=== PATIENT | male | born 1960 | race Caucasian/White ===

== ENCOUNTER 2016-02-11 11:49 | Observation (INO) | payer MEDICAID, SELFPAY ==
[2016-02-11] VITALS (17 sets, daily range): BP systolic 102–158; BP diastolic 77–109; PULSE 89–153; RESP 14–36; TEMP 36.7–37.3; O2SAT 92–99; BMI 34.9; BMI 32.6
--- NOTE | 2016-02-11 12:49 | CT_ITS ---
STUDY: CT BRAIN WITHOUT CONTRAST REASON FOR EXAM: Male, 55 years old. Trauma RADIATION DOSAGE (If Supplied By Facility): CTDIvol = ( 44.99 ) mGy, DLP = ( 829.85 ) mGycm TECHNIQUE: Transaxial CT imaging of the brain was performed without administration of intravenous contrast material. Individualized dose optimization techniques were used for this CT. COMPARISON: None. FINDINGS: Normal soft tissue structures. Normal calvarium. The lateral ventricles are normal in size and are symmetric. The third and fourth ventricles are midline. There is norwood matter atrophy involving the frontal lobes. Normal white matter tracts of the cerebral hemispheres. Normal basal ganglia and thalami. Normal brainstem. Normal cerebellum. There is no intracranial hemorrhage. There are no findings of an acute ischemic infarction. There are polypoid filling defects of the inferior maxillary sinuses consistent with mucoid retention cysts. There is opacification of multiple ethmoidal air cells bilaterally. There is mucosal thickening of the sphenoid sinuses. CT/Brain/Head without Contrast IMPRESSION: [place]wood matter atrophy involving the frontal lobes. There is no evidence of intracerebral or intracranial hemorrhage or calvarial fracture. Chronic pansinusitis. Polypoid filling defects of the inferior maxillary sinuses consistent with mucoid retention cysts. Electronically Signed: Johnie Gilman MD at 15:37 EST , Service support [phone],
--- NOTE | 2016-02-11 12:51 | CT_ITS ---
STUDY: CT CERVICAL SPINE WITHOUT CONTRAST REASON FOR EXAM: Male, 55 years old. Trauma RADIATION DOSAGE (If Supplied By Facility): CTDIvol = ( 16.97 ) mGy, DLP = ( 344.65 ) mGycm TECHNIQUE: High resolution transaxial imaging was performed without contrast material. Sagittal and coronal images were reconstructed. Individualized dose optimization techniques were used for this CT. COMPARISON: None FINDINGS: Evaluation of the lower cervical vertebrae/upper thoracic region is limited secondary to scanning artifact caused by patient body habitus. Normal craniovertebral junction. Normal anterior atlantoaxial articulation. Normal odontoid process. There is straightening of the normal cervical lordosis. There is mild marginal osteophytic lipping of the C5, 6, and 7 vertebral bodies. C2-3: Normal endplates. Normal disc height and morphology. Normal central canal and intervertebral neuroforamina. C3-4: Normal endplates. Normal disc height and morphology. Normal central canal and intervertebral neuroforamina. C4-5: Normal endplates. Normal disc height and morphology. Normal central canal and intervertebral neuroforamina. C5-6: Normal endplates. Normal disc height and morphology. Normal central canal and intervertebral neuroforamina. C6-7: There is mild narrowing of the C6-7 disc space. There is no evidence of spinal canal or foraminal stenosis. The facets appear within normal limits. C7-T1: Visualization of the C7-T1 level is technically limited. There is no evidence of disc space narrowing or spinal canal or foraminal stenosis. The facets are unremarkable. Normal visualized soft tissue structures. CT/Spine Cervical without Contras IMPRESSION: Technically limited study. Cervical spinal straightening and degenerative changes of C5-C7 as described above. Mild narrowing of the C6-7 disc space. There is no evidence of cervical fracture or subluxation. Electronically Signed: Johnie Gilman MD at 15:44 EST , Service support [phone],
--- NOTE | 2016-02-11 12:51 | CT_ITS ---
STUDY: CT ABDOMEN AND PELVIS WITH CONTRAST REASON FOR EXAM: Male, 55 years old. Trauma RADIATION DOSAGE (If Supplied By Facility): CTDIvol = ( ) mGy, DLP = ( 2232.80 ) mGycm TECHNIQUE: Transaxial images were obtained from the dome of the diaphragm to the symphysis pubis without oral contrast. 100ML ml of Isovue 300 contrast was administered. Sagittal and coronal images were reconstructed. Individualized dose optimization techniques were used for this CT. COMPARISON: Previous study of 01/01/2016 FINDINGS: The visualized lung bases are unremarkable. The visualized portions of the heart are within normal limits. Normal liver. Normal gallbladder and extrahepatic biliary system. Normal spleen. Normal pancreas. Normal bilateral adrenal glands. There is a 2 mm nonobstructing calculus of the right kidney. There are several nonobstructing calculi of the left kidney measuring up to 3 mm in diameter. Normal visualized stomach. Normal small intestine. Normal colon. The appendix is visualized and appears normal. There are calcified plaques of the abdominal aorta. Normal inferior vena cava. Normal retroperitoneum. Normal urinary bladder. Prostatic calcifications are present. The seminal vesicles and seminal vesicle angles are preserved. The fascial planes of the ischiorectal fossa are intact. Status post left inguinal hernia repair changes are noted. There is a fat-containing right inguinal hernia. There are diffuse degenerative changes of the thoracolumbar spine. There is a small sclerotic focus of the L5 body consistent with benign process such as bone island. CT/Abdomen/Pelvis W IV Cont ONLY IMPRESSION: 1. Bilateral nonobstructing renal calculi. 2. Calcified plaques of the abdominal aorta. 3. Prostatic calcifications are present. 4. Status post left inguinal hernia repair changes. 5. Fat-containing right inguinal hernia. 6. Diffuse degenerative changes of the thoracolumbar spine. 7. There is no evidence of hepatic, splenic, or renal laceration or hematoma. No abnormal free or loculated intra-abdominal or intrapelvic fluid, free air, or inflammatory process is seen. Electronically Signed: Johnie Gilman MD at 15:59 EST , Service support [phone],
--- NOTE | 2016-02-11 12:51 | CT_ITS ---
STUDY: CT CHEST WITH CONTRAST REASON FOR EXAM: Male, 55 years old. Trauma RADIATION DOSAGE (If Supplied By Facility): CTDIvol = ( 22.19 ) mGy, DLP = ( 2232.80 ) mGycm TECHNIQUE: Transaxial imaging was performed following intravenous administration of 100ML ml of Isovue 300 contrast material. Individualized dose optimization techniques were used for this CT. COMPARISON: None. FINDINGS: The lungs are normal. There is no pneumothorax. There is no demonstrated pleural abnormality. Coronary arterial calcifications are present. There is no evidence of pericardial effusion. There is mild mediastinal lipomatosis. There is no evidence of mediastinal mass or adenopathy. Normal hilar regions. Normal enhanced pulmonary arteries. There are calcified plaques of the thoracic aorta. There are mild diffuse degenerative changes of the thoracolumbar spine. No rib fracture was identified. Abdominal findings will be reported on the accompanying CT of the abdomen and pelvis. CT/Chest WITH Contrast IMPRESSION: 1. Coronary arterial calcifications are present. There is mild mediastinal lipomatosis. 2. There are calcified plaques of the thoracic aorta. 3. The pulmonary parenchyma is clear. There is no evidence of hemo or pneumothorax or pulmonary contusion. 4. No rib fracture was identified. There are diffuse degenerative changes of the thoracolumbar spine. Electronically Signed: Johnie Gilman MD at 15:53 EST , Service support [phone],
[2016-02-11 13:01] LABS: Absolute Lymphocyte Count 2.34 X10^3/ul (0.83-4.51); Absolute Neutrophil Count 7.6 X10^3/uL (2.0-7.7); Basophil# 0.03 X10^3/uL; Basophil% 0.3 % (0-1); Eosinophil# 0.18 X10^3/uL; Eosinophils% 1.6 % (0-5); Hematocrit 41.6 % (40-54); Hemoglobin 14.2 g/dl (13.0-16.5); Lymphocyte # 2.34 X10^3/ul (4.0); Mean Corp Hgb Conc 34.1 g/gl (32-36); Mean Corpuscular Hgb 30.9 pg (27.0-32.0); Mean Corpuscular Volume 90.4 fL (80-94); Mean Platelet Vol. 10.1 fl (6.2-12.0); Monocyte# 0.94 X10^3/uL; Monocyte% 8.4 % (0-10); Neutrophil # 7.63 X10^3/uL (2.7-7.7); Neutrophil % 68.5 % (47-70); Platelet Count 270 K/mm3 (150-450); RBC Distribution Width SD 45.5 fl (35.1-43.9); White Blood Count 11.1 K/mm3 (4.4-11.0)
[2016-02-11 13:02] LABS: POSITIVE COUNT NO; POSITIVE DIFFERENTIAL NO; POSITIVE MORPHOLOGY NO
[2016-02-11 13:14] LABS: Acetaminophen (Tylenol) Level < 2.0 ug/mL (10.0-30.0)
[2016-02-11 13:15] LABS: ALB/GLOB Ratio 0.9 RATIO (0.9-2.4); AST(SGOT) 15 U/L (15-37); Alanine Aminotransfer ALT/SGPT 21 U/L (12-78); Albumin, Serum 3.5 g/dL (3.4-5.0); Alkaline Phosphatase 101 U/L (45-117); Anion Gap 5 (5-15); BUN 18 mg/dL (7-18); BUN/Creat Ratio 15.8 RATIO (10-20); Calcium,Total 8.9 mg/dL (8.5-10.1); Chloride 113 mmol/L (98-107); Creatinine, Serum 1.14 mg/dL (0.70-1.30); EST Glomerular Filtration Rate 71 mL/min (>60); Est Glom Filt Rate - Afr Amer 85 mL/min (>60); Estimated Creatinine Clearance 62.94 ml/min; Globulin 3.7 g/dL (2.3-3.5); Glucose 95 mg/dL (70-110); Potassium 4.1 mmol/L (3.5-5.1); Protein, Total 7.2 g/dL (6.4-8.2); Sodium Level 144 mmol/L (136-145)
[2016-02-11 13:17] LABS: Alcohol, Blood (Medical)-Serum < 3.0 mg/dL
--- NOTE | 2016-02-11 13:22 | CCN.REFER ---
pt pulled out his iv. pt states he was rolling in bed and it pulled out.
[2016-02-11 15:56] LABS: Bacteria 0 SEEN /hpf (None Seen); Red Blood Cells-Urine 0 SEEN /hpf (0-5); Squamous Epithelial Cells - UA 0 SEEN /hpf (0-5)
[2016-02-11 15:57] LABS: Color, Urine Yellow (Yellow); Glucose, Dipstick Normal (Normal); Ketone-Dipstick Negative (Negative); Leukocyte Esterase-Dipstick Negative /ul (Negative); Nitrite-Dipstick Negative (Negative); Occult Blood-Urine Negative /ul (Negative); Protein-Dipstick Negative (Negative); Specific Gravity, Urine 1.015 (1.002-1.030); Urine Bilirubin Dipstick Negative (Negative); Urine Clarity Clear (Clear); Urine Urobilinogen Normal (Normal)
[2016-02-11 16:19] LABS: Hyaline Cast 0-5 SEEN /lpf (0-5); Mucous, Urine 1+ /hpf (<or=2+)
[2016-02-11 16:21] LABS: White Blood Cells 0-5 SEEN /hpf (0-5)
[2016-02-11 16:49] LABS: Amphetamine Urine VISTA NEGATIVE (<1000 ng/mL); Barbiturate Urine VISTA NEGATIVE (< 200 ng/mL); Benzodiazepine Urine VISTA POSITIVE (< 200 ng/mL); Cocaine Urine VISTA NEGATIVE (< 300 ng/mL); Ecstacy Urine VISTA NEGATIVE (< 500 ng/mL); Methadone Urine VISTA NEGATIVE (< 300 ng/mL); PCP Urine VISTA NEGATIVE (< 25 ng/mL); THC Urine VISTA POSITIVE (< 50 ng/mL); Vista UDS pH Range 5
--- NOTE | 2016-02-11 17:40 | RAD_ITS ---
STUDY: X-RAY CHEST REASON FOR EXAM: Male, 55 years old. Shortness of breath. Gurgling sound while breathing. Patient had fall down steps today TECHNIQUE: Single AP portable view of the chest. COMPARISON: None. FINDINGS: EKG leads are in place The lungs are clear and expanded. There is no demonstrated pleural abnormality. Normal size heart. Normal mediastinum and costa. Normal visualized pulmonary arteries. Normal visualized aortic arch and descending thoracic aorta. Normal visualized thoracic spine. Normal visualized ribs, clavicles, and shoulders. There is no demonstrated abnormality of the visualized soft tissue structures of the upper abdomen. RAD/Chest 1 View (Portable) IMPRESSION: Normal x-ray examination of the chest. Electronically Signed: Dain Ortega MD, FACR at 19:08 EST , Service support [phone],
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
[2016-02-11] MEDS: Ipratropium/Albuterol Sulfate 3 ML AMPUL.NEB INHALATION ×2 (18:01→23:01)
[2016-02-11 18:03] LABS: Base Excess 0 mmol/L (-2 to +2); Bicarbonate 25 mmol/L (22-26); Blood Gas Specimen Type ART; PO2 59 mmHG (75-100); SO2 89 % (95-99); Total Carbon Dioxide 27 mmol/L; pH 7.38 (7.35-7.45)
[2016-02-11 18:15] LABS: BNP,B-Type NATRIURETIC PEPTIDE < 2.0 pg/mL (0-100)
[2016-02-11] MEDS: Furosemide 20 MG/2 ML VIAL IV (18:15)
--- NOTE | 2016-02-11 18:22 | EKG12_ITS ---
Test Reason : SOB Blood Pressure : / mmHG Vent. Rate : 110 BPM Atrial Rate : 110 BPM P-R Int : 138 ms QRS Dur : 088 ms QT Int : 290 ms P-R-T Axes : 030 024 245 degrees QTc Int : 392 ms Sinus tachycardia Nonspecific T wave abnormality Abnormal ECG Confirmed by ROSEMARIE LOMAX MD ([id number]), legal editor CRISTOFER SAUER ([id number]) on 02/13/2016 10:25:55 AM Referred By: ZEYAD Confirmed By:ROSEMARIE LOMAX MD
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
--- NOTE | 2016-02-11 20:48 | CPS ---
pt moved from ed to icu 3-placed back on bipap-decresed o2 to 50%
[2016-02-11] MEDS: Furosemide 40 MG/4 ML Vial IV (21:34)
[2016-02-11 22:06] LABS: M R Staph aureus DNA By PCR Negative (Negative); Probe Check PASS; Specimen Processing Control PASS
--- NOTE | 2016-02-11 23:04 | CPS ---
BIPAP SETTING INCREASED TO 17/8 AND 60% DR SOUSA AWARE-
[2016-02-11] MEDS: Haloperidol Lactate 5 MG/ML Vial 1 MG IV (23:32)
--- NOTE | 2016-02-11 23:32 | EKG12_ITS ---
Test Reason : RHY CHANGE Blood Pressure : / mmHG Vent. Rate : 139 BPM Atrial Rate : 139 BPM P-R Int : 152 ms QRS Dur : 072 ms QT Int : 244 ms P-R-T Axes : 030 031 256 degrees QTc Int : [address] \T\ T wave abnormality, consider inferolateral ischemia Abnormal ECG No previous ECGs available Confirmed by PIPPA ALEJANDRA ([id number]), editorial clerk CRISTOFER SAEUR ([id number]) on 02/13/2016 1:10:10 PM Referred By: JANET Confirmed By:PIPPA ALEJANDRA
[2016-02-12] VITALS (16 sets, daily range): BP systolic 132–163; BP diastolic 69–107; PULSE 114–147; RESP 16–29; TEMP 37.2–39.3; O2SAT 90–99
[2016-02-12] MEDS: Acetaminophen 325 MG Tablet 650 MG PO (01:20)
[2016-02-12 02:01] LABS: Absolute Lymphocyte Count 0.91 X10^3/ul (0.83-4.51); Absolute Neutrophil Count 16.5 X10^3/uL (2.0-7.7); Basophil# 0.03 X10^3/uL; Basophil% 0.2 % (0-1); Eosinophil# 0.04 X10^3/uL; Eosinophils% 0.2 % (0-5); Hematocrit 46.4 % (40-54); Hemoglobin 15.9 g/dl (13.0-16.5); Lymphocyte # 0.91 X10^3/ul (4.0); Lymphocyte % 4.9 % (19-41); Mean Corp Hgb Conc 34.3 g/gl (32-36); Mean Corpuscular Hgb 30.9 pg (27.0-32.0); Mean Corpuscular Volume 90.3 fL (80-94); Mean Platelet Vol. 10.2 fl (6.2-12.0); Monocyte# 1.11 X10^3/uL; Neutrophil # 16.49 X10^3/uL (2.7-7.7); Neutrophil % 88.5 % (47-70); POSITIVE COUNT NO; POSITIVE DIFFERENTIAL NO; POSITIVE MORPHOLOGY NO; Platelet Count 265 K/mm3 (150-450); RBC Distribution Width CV 14.2 % (11.6-14.6); RBC Distribution Width SD 46.5 fl (35.1-43.9); Red Blood Count 5.14 M/mm3 (4.6-6.2); White Blood Count 18.6 K/mm3 (4.4-11.0)
[2016-02-12 02:13] LABS: Anion Gap 10 (5-15); BUN 18 mg/dL (7-18); BUN/Creat Ratio 12.3 RATIO (10-20); Calcium,Total 9.3 mg/dL (8.5-10.1); Chloride 109 mmol/L (98-107); Creatinine, Serum 1.46 mg/dL (0.70-1.30); EST Glomerular Filtration Rate 53 mL/min (>60); Est Glom Filt Rate - Afr Amer 64 mL/min (>60); Estimated Creatinine Clearance 50.98 ml/min; Glucose 128 mg/dL (70-110); Potassium 3.6 mmol/L (3.5-5.1); Sodium Level 142 mmol/L (136-145)
[2016-02-12 02:20] LABS: Lactic Acid 2.5 mmol/L (0.4-2.0)
[2016-02-12 02:36] LABS: Base Excess 3 mmol/L (-2 to +2); Bicarbonate 27 mmol/L (22-26); Blood Gas Specimen Type ART; PO2 105 mmHG (75-100); SO2 98 % (95-99); Total Carbon Dioxide 28 mmol/L; pH 7.47 (7.35-7.45)
[2016-02-12] MEDS: CHLORHEXIDINE GLUC 2% CLOTH 1 EACH TOWELETTE TOPICAL (04:05)
--- NOTE | 2016-02-12 05:55 | ECHOD_ITS ---
Reason For Study: CHF Procedure This was a 2D Doppler, Color Flow transthoracic echocardiogram. Exam performed portable in ICU/CCU. Left Ventricle Normal size and thickness. The estimated ejection fraction is 65 %. No regional wall motion abnormalities noted. Right Ventricle Normal size and thickness. Normal systolic function. Atria Normal left atrium. Normal right atrium. Normal atrial septum. Mitral Valve The mitral valve is structurally normal. No prolapse or stenosis seen. Tricuspid Valve Normal tricuspid valve. Unable to estimate RV systolic pressure/pulmonary artery pressure due to technically difficult study. Pulmonic Valve The pulmonic valve is not well visualized. Great Vessels Normal aortic root. Normal arch. Normal inferior vena cava. Inferior vena cava collapse with sniff. Pericardium/Pleural No pericardial effusion. MMode/2D Measurements \T\ Calculations LVIDd: 4.3 cm IVSd: 1.2 cm Ao root diam: 3.3 cm LVIDs: 2.9 cm LVPWd: 1.1 cm LA dimension: 4.1 cm RVDd: 3.5 cm FS: 31.4 % LAV(MOD-bp): 19.9 ml LAV(MOD-bp) Indexed: 10.1 ml/m2 LA A4 area: 10.1 cm2 RA A4 area: 7.8 cm2 LAV(MOD-sp2): 19.8 ml LAV(MOD-sp4): 18.5 ml Doppler Measurements \T\ Calculations MV E max zander: 51.1 cm/sec Lat Peak E' Zander: 4.8 cm/sec Med Peak E' Zander: 3.9 cm/sec MV A max zander: 62.5 cm/sec E/E' lat: 10.6 E/E' med: 13.2 MV E/A: 0.82 Ao V2 max: 132.1 cm/sec LV V1 max: 89.9 cm/sec PA V2 max: 113.4 cm/sec Ao max P.0 mmHg LV V1 max P.2 mmHg Ao V2 mean: 90.5 cm/sec Ao mean P.6 mmHg Ao V2 VTI: 17.9 cm Interpretation Summary The estimated ejection fraction is 65 %. Unable to estimate RV systolic pressure/pulmonary artery pressure due to technically difficult study. The study was technically difficult. There is no comparison study available. Ordering Physician: Nadiya Urban Referring Physician: Nadiya Urban Performed By: Gudelia Lyons RDCS, RVT
[2016-02-12 06:03] LABS: Anion Gap 13 (5-15); BUN 21 mg/dL (7-18); BUN/Creat Ratio 13.3 RATIO (10-20); Calcium,Total 9.2 mg/dL (8.5-10.1); Chloride 105 mmol/L (98-107); Creatinine, Serum 1.58 mg/dL (0.70-1.30); EST Glomerular Filtration Rate 48 mL/min (>60); Est Glom Filt Rate - Afr Amer 59 mL/min (>60); Estimated Creatinine Clearance 47.11 ml/min; Glucose 143 mg/dL (70-110); Potassium 3.7 mmol/L (3.5-5.1); Sodium Level 142 mmol/L (136-145)
--- NOTE | 2016-02-12 07:07 | PCM.CON.CC ---
Problem List (1) Acute respiratory failure with hypoxia Status: Acute (2) Chronic back pain Status: Chronic Qualifiers: Back pain location: back pain in unspecified location Back pain laterality: B Sciatica presence: S Sciatica laterality: S (3) Polysubstance dependence including opioid drug with daily use Status: Chronic Reason for Consult Date of Consultation: 02/12/16 Reason for Consultation: Acute Respiratory Failure History of Present Illness: The patient is a 55-year-old male, with a history as outlined below, who presented to the emergency department on February 10 under the supervision of police after the patient apparently tripped and fell down a flight of stairs in his home environment. Per report, the patient resides with his mother, who was suspicious that the patient is suffering effects of polypharmacy as he has been exhibiting bizarre behavior. The patient was recently discharged from a inpatient psychiatric stay on 04 February, following evaluation for suicidal ideations. The patient also has a reported history of polysubstance abuse. On presentation to the emergency department, the patient was noted to be lethargic with a GCS of 14. He had no focal neurological deficits. He was hemodynamically stable and maintaining appropriate oxygen saturations on room air. The patient underwent CAT scans of his brain, chest, abdomen and pelvis. The results of those imaging studies demonstrated no significant pathology. A toxicology screen was positive for marijuana and benzodiazepines. His alcohol level was negative. During his emergency department stay, the patient was noted to become progressively hypoxic, requiring increasing supplemental oxygen. He was subsequently placed on BiPAP therapy and transferred to the medical intensive care unit for ongoing management. Overnight, the patient was provided aerosol treatments and was started on Levaquin. He did spike a fever and his white blood cell count edyta to 19,000 this morning. The patient tolerated BiPAP overnight, without any significant issues. His gas exchange is improved this morning. In addition, the patient was started on diuretic therapy overnight, but had worsening of his creatinine this morning to 1.58. The patient was able to be weaned from BiPAP therapy to supplemental oxygen without issue. Past Medical History Past Medical History (Chronic Problems): Chronic Problems Chronic back pain (Chronic) Polysubstance dependence including opioid drug with daily use (Chronic) Allergies morphine Allergy (Verified 02/11/16 11:52) Rash prednisone Allergy (Verified 02/11/16 11:52) Anaphylaxis quetiapine fumarate [From Ugurul] Allergy (Verified 02/11/16 11:52) Rash sulfamethoxazole [From Bactrim] Allergy (Verified 02/11/16 11:52) Rash trimethoprim [From Bactrim] Allergy (Verified 02/11/16 11:52) Rash Home Medications: Ambulatory Orders Medication Instructions Recorded Acetaminophen [Tylenol] 650 mg PO Q4H PRN 08/21/15 Aspirin [Aspirin, Baby] 81 mg PO DAILY@0800 08/21/15 Budesonide/Formoterol 160/4.5 2 puff INHALATION BID 08/21/15 [Symbicort 160/4.5 Mcg Inhaler (SP)] Finasteride [Proscar] 5 mg PO DAILY 08/21/15 Pantoprazole Sodium [Protonix] 40 mg PO BID 08/21/15 Pravastatin [Pravachol] 20 mg PO QHS 08/21/15 Tamsulosin HCl [Flomax] 0.4 mg PO BID 08/21/15 ProMETHAzine [Phenergan] 25 mg PO Q6H PRN PRN #10 tablet 01/01/16 ProMETHAzine [Phenergan] 25 mg RECTAL Q4H PRN PRN #10 01/12/16 suppos. Sucralfate [Carafate] 1 gm PO 4X/DAY #30 tab 01/20/16 Carvedilol [Coreg] 6.25 mg PO BID 02/11/16 Cyclobenzaprine [Flexeril] 10 mg PO TID PRN PRN 02/11/16 Docusate Sodium [Colace] 100 mg PO DAILY 02/11/16 Doxepin HCl 50 - 100 mg PO QHS PRN 02/11/16 Gabapentin [Neurontin] 300 mg PO 1700 02/11/16 Gabapentin [Neurontin] 300 mg PO DAILY 02/11/16 Gabapentin [Neurontin] 600 mg PO QHS 02/11/16 Lurasidone HCl [Latuda] 60 mg PO 0 02/11/16 Mirtazapine [Remeron] 30 mg PO QHS 02/11/16 Multivitamin with Iron [Tab-A-Radha 1 each PO DAILY 02/11/16 with Iron] Surgical History: - - Intracranial repair, bilateral inguinal hernia repair Psychiatric History: Depression, Prior suicide attempt Smoking Status: Current every day smoker Tobacco Use: Non-smoker Alcohol: None Drugs: None - *Family History Maternal History Items: Unknown Paternal History Items: Unknown Review of Systems Constitutional: Denies: Chills, Fever, Night Sweats Eyes: Denies: Blurred vision, Double vision HEENT: Denies: Head Aches, Sinus Congestion, Sinus Drainage Cardiovascular: Denies: Chest Pain, Palpitations Respiratory: Reports: Cough Gastrointestinal: Denies: Abdominal Pain, Nausea, Vomiting Genitourinary: Denies: Dysuria Musculoskeletal: Reports: Back Pain Skin: Denies: Rash, Wounds Neurological: Reports: Headaches Psychiatric: Reports: Anxiety, Depression Hematologic/ Lymphatic: Denies: Easy Bruising, Easy Bleeding Objective: The patient's most recent lab work, culture data and imaging studies have all been personally reviewed. Urine and blood cultures are pending. His influenza screen was negative. - Physical Exam General: Alert, No apparent distress HEENT: Atraumatic, PERRLA, EOMI, Normocephalic Oral: No Gingival or Mucosal Lesions/ Ulcerations, Dry Mucosa Neck: Supple, No JVD, Trachea Midline Lungs: - - Scattered rhonchi Cardiovascular: Regular Rhythm, No murmurs, Tachycardic Abdomen: Bowel Sounds Present, Soft, Non Tender, Non-Distended, Obese Extremities: No clubbing, No cyanosis, No edema Skin: No rashes, No breakdown Musculoskeletal: No Tenderness to Palpation of Joints or Extremities Lymphatic: No Cervical, Supraclavicular, or Inguinal Adenopathy Neurological: - - No focal neurological deficits. Psych/Mental Status: Anxious, Restless Vital Signs Temp Pulse Resp BP Pulse Ox 37.5 C 114 25 147/90 90 02/12/16 06:00 02/12/16 06:00 02/12/16 06:00 02/12/16 06:00 02/12/16 06:00 Oxygen Delivery Method Bi-pap Weight: 90.7 kg Body Mass Index (BMI) 32.6 Intake and Output for Last 24 Hours 02/10/16 02/11/16 02/12/16 23:59 23:59 23:59 Intake Total 112 Output Total 1700 200 Balance -1700 -88 Microbiology Past 72 Hours 02/11/16 21:00 Influenza Types A,B Direct FA (TANYA) - Final Mucosa - Nose Laboratory Tests Past 24 Hrs 02/11/16 02/11/1602/11/17 20:35 21:40 01:30 WBC RBC Hgb Hct MCV MCH MCHC RDW RDW Differential Plt Count MPV Immature Gran % (Auto) Neut % (Auto) Lymph % (Auto) [place] % (Auto) Eos % (Auto) Baso % (Auto) Absolute Neuts (auto) Absolute Lymphs (auto) Total Counted Specimen Type pH Bicarbonate Actual POC Total CO2 Base Excess O2 Saturation ABG pCO2 ABG pO2 Sodium Potassium Chloride Carbon Dioxide Anion Gap BUN Creatinine Estim Creat Clear Calc Est GFR (MDRD) Af Amer Est GFR (MDRD) Non-Af BUN/Creatinine Ratio Glucose Lactic Acid Calcium Troponin I < 0.02 < 0.02 MRSA (PCR) Negative 02/12/16 02/12/16 02/12/16 01:30 01:30 01:45 WBC 18.6 H RBC 5.14 Hgb 15.9 Hct 46.4 MCV 90.3 MCH 30.9 MCHC 34.3 RDW 14.2 RDW Differential 46.5 H Plt Count 265 MPV 10.2 Immature Gran % (Auto) 0.200 Neut % (Auto) 88.5 H Lymph % (Auto) 4.9 L [place] % (Auto) 6.0 Eos % (Auto) 0.2 Baso % (Auto) 0.2 Absolute Neuts (auto) 16.5 H Absolute Lymphs (auto) 0.91 Total Counted Not Reportable Specimen Type pH Bicarbonate Actual POC Total CO2 Base Excess O2 Saturation ABG pCO2 ABG pO2 Sodium 142 Potassium 3.6 Chloride 109 H Carbon Dioxide 23.0 Anion Gap 10 BUN 18 Creatinine 1.46 H Estim Creat Clear Calc 50.98 Est GFR (MDRD) Af Amer 64 Est GFR (MDRD) Non-Af 53 L BUN/Creatinine Ratio 12.3 Glucose 128 H Lactic Acid 2.5 H Calcium 9.3 Troponin I MRSA (PCR) 02/12/16 02/12/16 02/12/16 02:25 05:10 05:10 WBC Pending RBC Pending Hgb Pending Hct Pending MCV Pending MCH Pending MCHC Pending RDW Pending RDW Differential Pending Plt Count Pending MPV Immature Gran % (Auto) Neut % (Auto) Lymph % (Auto) [place] % (Auto) Eos % (Auto) Baso % (Auto) Absolute Neuts (auto) Absolute Lymphs (auto) Total Counted Specimen Type ART pH 7.47 H Bicarbonate Actual 27 H POC Total CO2 28 Base Excess 3 H O2 Saturation 98 ABG pCO2 37.0 ABG pO2 105 H Sodium 142 Potassium 3.7 Chloride 105 Carbon Dioxide 24.0 Anion Gap 13 BUN 21 H Creatinine 1.58 H Estim Creat Clear Calc 47.11 Est GFR (MDRD) Af Amer 59 L Est GFR (MDRD) Non-Af 48 L BUN/Creatinine Ratio 13.3 Glucose 143 H Lactic Acid Calcium 9.2 Troponin I MRSA (PCR) 02/12/16 05:10 WBC RBC Hgb Hct MCV MCH MCHC RDW RDW Differential Plt Count MPV Immature Gran % (Auto) Neut % (Auto) Lymph % (Auto) [place] % (Auto) Eos % (Auto) Baso % (Auto) Absolute Neuts (auto) Absolute Lymphs (auto) Total Counted Specimen Type pH Bicarbonate Actual POC Total CO2 Base Excess O2 Saturation ABG pCO2 ABG pO2 Sodium Potassium Chloride Carbon Dioxide Anion Gap BUN Creatinine Estim Creat Clear Calc Est GFR (MDRD) Af Amer Est GFR (MDRD) Non-Af BUN/Creatinine Ratio Glucose Lactic Acid Calcium Troponin I < 0.02 MRSA (PCR) Clinical Impression(s) from Imaging Studies Brain CT 02/11/16 12:49 IMPRESSION: [place] matter atrophy involving the frontal lobes. There is no evidence of intracerebral or intracranial hemorrhage or calvarial fracture. Chronic pansinusitis. Polypoid filling defects of the inferior maxillary sinuses consistent with mucoid retention cysts. Electronically Signed: Johnie Gilman MD at 15:37 EST , Service support [phone], Abdomen/Pelvis CT 02/11/16 12:51 IMPRESSION: 1. Bilateral nonobstructing renal calculi. 2. Calcified plaques of the abdominal aorta. 3. Prostatic calcifications are present. 4. Status post left inguinal hernia repair changes. 5. Fat-containing right inguinal hernia. 6. Diffuse degenerative changes of the thoracolumbar spine. 7. There is no evidence of hepatic, splenic, or renal laceration or hematoma. No abnormal free or loculated intra-abdominal or intrapelvic fluid, free air, or inflammatory process is seen. Electronically Signed: Johnie Gilman MD at 15:59 EST , Service support [phone], Cervical Spine CT 02/11/16 12:51 IMPRESSION: Technically limited study. Cervical spinal straightening and degenerative changes of C5-C7 as described above. Mild narrowing of the C6-7 disc space. There is no evidence of cervical fracture or subluxation. Electronically Signed: Johnie Gilman MD at 15:44 EST , Service support [phone], Chest CT 02/11/16 12:51 IMPRESSION: 1. Coronary arterial calcifications are present. There is mild mediastinal lipomatosis. 2. There are calcified plaques of the thoracic aorta. 3. The pulmonary parenchyma is clear. There is no evidence of hemo or pneumothorax or pulmonary contusion. 4. No rib fracture was identified. There are diffuse degenerative changes of the thoracolumbar spine. Electronically Signed: Johnie Gilman MD at 15:53 EST , Service support [phone], Chest X-Ray 02/11/16 17:40 IMPRESSION: Normal x-ray examination of the chest. Electronically Signed: Dain Ortega MD, FACR at 19:08 EST , Service support [phone], Assessment/Plan RECOMMENDATIONS: 1. Wean the patient from BiPAP therapy to nasal cannula, with a goal to maintain saturations at or above 88%. 2. Perform bedside swallow evaluation and advance diet accordingly 3. Recheck serum lactate level 4. Continue antimicrobial coverage, pending culture results 5. Provide supplemental IV fluid hydration, given the development of VERONICA in the setting of diuresis overnight 6. The patient is currently requesting a transfer to [facility]. We will recheck to them accordingly to discuss the possibility of transferring the patient. IMPRESSIONS: 1. Acute hypoxic respiratory failure potentially heralded by a COPD exacerbation -The patient has responded quickly to treatment with aerosols and BiPAP therapy -We will plan to wean from noninvasive positive pressure ventilation and transition to supplemental oxygen via nasal cannula. Goal oxygen saturation greater than or equal to 88%. -Hold off on steroids at this time 2. Transient encephalopathy thought to be secondary to polypharmacy -The patient's mentation has vastly improved this morning. He is alert and appropriately interactive. -He is requesting transfer to [facility] for further evaluation and treatment. -[facility] report indicated that the patient has been getting multiple medications from multiple different providers 3. Sepsis with unclear source -The patient was started on antibiotics. Cultures are pending. -Would recommend IV fluid hydration, as the patient was diuresed overnight and subsequently developed acute kidney injury -Recheck serum lactate level 4. History of polysubstance abuse/depression/anxiety -Recommend psychiatry evaluation -Holding on restarting home medications at this time 5. Acute kidney injury likely secondary to intravascular volume depletion from overnight diuresis -Discontinue Lasix -Provide fluid boluses accordingly 6. Coronary artery disease -A 2D echocardiogram is pending this morning. Troponins are negative. Low suspicion for decompensated heart failure. 7. BPH/history of kidney stones/hypertension/hyperlipidemia/tobacco abuse -Complicates care, management, recovery and prognosis. Restart home medications as indicated. Recommend nicotine replacement therapy while inpatient. TIME: 44 minutes of critical care time was spent addressing the patient's acute hypoxic respiratory failure, encephalopathy, sepsis, acute kidney injury, review of all data and collaboration with the care team.
[2016-02-12] MEDS: Ipratropium/Albuterol Sulfate 3 ML AMPUL.NEB INHALATION (07:28)
[2016-02-12] MEDS: Budesonide Respules 0.5 MG/2 ML AMPUL.NEB. INHALATION (07:28)
--- NOTE | 2016-02-12 07:41 | NURSING ---
Addendum entered by Annemarie Irwin 02/12/16 08:00: correction to previous note--pt is insisting he be transferred to [facility]-- assessed pt and he is now A+OX3 cam negative Original Note: pt expressing that he wants to be transferred to [facility]. he states he does not want to stay in this hospital
--- NOTE | 2016-02-12 07:44 | PCM.PN.HOSP ---
Patient Problems: Active and Suspected Problems Acute and chronic respiratory failure with hypoxia (Acute) Acute respiratory failure with hypoxia (Acute) Subjective: Patient was seen and examined. Overnight, he did well on Bipap. This morning, he insists on being transferred to [facility] because he has had previous care there. He says he feels better. He denies any chest pain, dizziness or SOB. Had a Tmax of 102.8 last night. At the time of being examined, he is on 4L of oxygen and saturating at 94%. Denies cough or sputum production. Vitals/I&O's: Vital Signs Temp Pulse Resp BP Pulse Ox 99.5 F 115 28 147/90 97 02/12/16 06:00 02/12/16 07:30 02/12/16 07:30 02/12/16 06:00 02/12/16 07:30 Oxygen Delivery Method Bi-pap Weight: 90.7 kg Body Mass Index (BMI) 32.6 Intake and Output for Last 24 Hours 02/10/16 02/11/16 02/12/16 23:59 23:59 23:59 Intake Total 112 Output Total 1700 200 Balance -1700 -88 General: Alert, Oriented x3, Cooperative, No apparent distress, - - obese, on 4L oxygen HEENT: Atraumatic, PERRLA, EOMI, Normocephalic Oral: Moist Mucosa Neck: Supple Lungs: Diminished - AE all over the lungs with coarse lung sounds Cardiovascular: Regular rate, Regular Rhythm, Normal S1, Normal S2, No murmurs Abdomen: Bowel Sounds Present, Soft, Non Tender, Non-Distended, No Hepato-splenomegaly Extremities: No edema Skin: No rashes, No breakdown Musculoskeletal: No Tenderness to Palpation of Joints or Extremities Lymphatic: No Cervical, Supraclavicular, or Inguinal Adenopathy Neurological: Cranial nerves II-XII grossly intact, Motor Exam 5/5 strength throughout Psych/Mental Status: Normal Affect, Restless Microbiology Past 72 Hours 02/11/16 21:00 Mucosa - Nose Influenza Types A,B Direct FA (TANYA) - Final Laboratory Results 02/11/16 20:35: MRSA (PCR) Negative 02/11/16 21:40: Troponin I < 0.02 02/12/16 01:30: Troponin I < 0.02 02/12/16 01:30: WBC 18.6 H, RBC 5.14, Hgb 15.9, Hct 46.4, MCV 90.3, MCH 30.9, MCHC 34.3, RDW 14.2, RDW Differential 46.5 H, Plt Count 265, MPV 10.2, Immature Gran % (Auto) 0.200, Neut % (Auto) 88.5 H, Lymph % (Auto) 4.9 L, [place] % (Auto) 6.0, Eos % (Auto) 0.2, Baso % (Auto) 0.2, Absolute Neuts (auto) 16.5 H, Absolute Lymphs (auto) 0.91, Total Counted Not Reportable 02/12/16 01:30: Sodium 142, Potassium 3.6, Chloride 109 H, Carbon Dioxide 23.0, Anion Gap 10, BUN 18, Creatinine 1.46 H, Estim Creat Clear Calc 50.98, Est GFR (MDRD) Af Amer 64, Est GFR (MDRD) Non-Af 53 L, BUN/Creatinine Ratio 12.3, Glucose 128 H, Calcium 9.3 02/12/16 01:45: Lactic Acid 2.5 H 02/12/16 02:25: Specimen Type ART, pH 7.47 H, Bicarbonate Actual 27 H, POC Total CO2 28, Base Excess 3 H, O2 Saturation 98, ABG pCO2 37.0, ABG pO2 105 H 02/12/16 05:10: WBC Cancelled, Corrected WBC Cancelled, RBC Cancelled, Hgb Cancelled, Hct Cancelled, MCV Cancelled, MCH Cancelled, MCHC Cancelled, RDW Cancelled, RDW Differential Cancelled, Plt Count Cancelled, MPV Cancelled, Diff Path Review Cancelled 02/12/16 05:10: Sodium 142, Potassium 3.7, Chloride 105, Carbon Dioxide 24.0, Anion Gap 13, BUN 21 H, Creatinine 1.58 H, Estim Creat Clear Calc 47.11, Est GFR (MDRD) Af Amer 59 L, Est GFR (MDRD) Non-Af 48 L, BUN/Creatinine Ratio 13.3, Glucose 143 H, Calcium 9.2 02/12/16 05:10: Troponin I < 0.02 Current Medications Acetaminophen (Tylenol) 650 mg PO Q6H PRN PRN PRN Reason: PAIN Last Admin: 02/12/16 01:20 Dose: 650 mg Albuterol/Ipratropium (Duoneb) 3 ml INHALATION Q4HWA.RT [facility] Last Admin: 02/12/16 07:28 Dose: 3 ml Budesonide (Pulmicort Aerosol) 0.5 mg INHALATION Q12H.RT [facility] Last Admin: 02/12/16 07:28 Dose: 0.5 mg Chlorhexidine Gluconate () 1 each TOPICAL DAILY [facility] Last Admin: 02/12/16 04:05 Dose: 1 each Enoxaparin Sodium (Lovenox) 40 mg SC DAILY@1000 TRUONG Pantoprazole Sodium 40 mg/ (Sodium Chloride) 110 mls @ 330 mls/hr IV Q24 [facility] Levofloxacin 500 mg/ N/A 100 mls @ 100 mls/hr IV Q24 [facility] Last Admin: 02/12/16 03:17 Dose: 100 mls/hr Influenza Virus Vaccine Quadrival (Fluarix/Fluzone) 0.5 ml IM .ONCE ONE Stop: 02/12/16 10:01 Lorazepam (Ativan) 0.5 mg IV Q6H PRN PRN PRN Reason: AGITATION Mirtazapine (Remeron) 30 mg PO QHS [facility] Last Admin: 02/11/16 21:39 Dose: Not Given Sodium Chloride () 5 - 10 ml IV UD PRN PRN Reason: SALINE FLUSH Assessment/Plan Active and Suspected Problems Acute and chronic respiratory failure with hypoxia (Acute) Acute respiratory failure with hypoxia (Acute) 55-year-old male no known cardiac disease, history of hypertension, hyperlipidemia,obesity, hx of depression suicidal ideation admitted with acute onset of progressive shortness of breath(02/11/2016). 1. Acute hypoxic respiratory failure secondary to likely new onset CHF versus COPD exacerbation. Managed in ICU overnight on BiPAP, BiPAP this morning and saturating at 94% on 4 L of oxygen 2D echo is pending, repeat ABG this morning shows pH 7.47, PCO2 of 28, PO2 105 Patient insist on being transferred to [place] Plan: Transfer to [place] when bed is available 2. Tachycardia, slight hypertension, likely related to benzo withdrawal, versus beta-blockade withdrawal (carvedilol was put on hold last night as patient was on BiPAP), versus mild dehydration vs albuterol due to tachycardia versus anxiety Plan: Gentle IV fluids, DC albuterol, continue on ipratropium breathing treatment, IV benzodiazepine as needed, monitor vitals closely. 3. Severe sepsis(tachycardia, leukocytosis, temperature more than 101, lactic acid 2.5), unclear etiology for now. Previous chest x-ray was negative. Plan: Repeat chest x-ray, urine culture. 4. Substance abuse disorder, benzodiazepines, marijuana, suspect also opioids but no showing on current tox screen Plan: On benzo withdrawal protocol 5. CAD, aspirin, statin 6. COPD, on budesonide and formoterol 7 Hyperlipidemia, statin 8. Depressive disorder with previous suicidal ideation, Latuda, Remeron. Records from [address] [place] [address] shows that patient was admitted recently on 01/30/2016 with worsening depression, suicidal attempt with overdose. 9. BPH, history of kidney stones ,on Flomax and finasteride 10. DVT prophylaxis with Lovenox subcu 11. GI prophylaxis with PPI
[2016-02-12] MEDS: Ondansetron 4 MG/2 ML Vial IV (08:25)
--- NOTE | 2016-02-12 08:34 | RAD_ITS ---
STUDY: X-RAY CHEST REASON FOR EXAM: Male, 55 years old. Short of breath TECHNIQUE: Single AP portable view of the chest. COMPARISON: Previous study of February 11, 2016 FINDINGS: monitor and storage bin tender leads are present. There is increased hazy density of the right lower lung field. There is mild right hemithoracic pleural thickening.. Normal size heart. Normal mediastinum and costa. Normal visualized pulmonary arteries. Normal visualized aortic arch and descending thoracic aorta. Normal visualized thoracic spine. Normal visualized ribs, clavicles, and shoulders. There is no demonstrated abnormality of the visualized soft tissue structures of the upper abdomen. RAD/Chest 1 View (Portable) IMPRESSION: Increased hazy density of the right lower lung field suspicious for early infiltrate or atelectasis. This represents a new interval finding. There is mild right hemithoracic pleural thickening. Electronically Signed: Johnie Gilman MD at 9:52 EST , Service support [phone],
--- NOTE | 2016-02-12 09:36 | PCM.DC.SUM ---
Discharge Date and Diagnosis - Problem List Patient Problems: Active and Suspected Problems Acute and chronic respiratory failure with hypoxia (Acute) Acute respiratory failure with hypoxia (Acute) Date of Admission: 02/11/16 Date of Discharge: 02/12/16 - Primary Discharge Diagnosis Active and Suspected Problems Acute and chronic respiratory failure with hypoxia (Acute) Acute respiratory failure with hypoxia (Acute) Severe sepsis - Secondary Discharge Diagnosis Chronic Problems Chronic back pain (Chronic) Polysubstance dependence including opioid drug with daily use (Chronic) Hospital Course and Treatment Imaging Results: 02/12/16 08:34 Chest 1 View (Portable) [RAD] Urgent Clinical Impression(s) from Imaging Studies Brain CT 02/11/16 12:49 IMPRESSION: [place] matter atrophy involving the frontal lobes. There is no evidence of intracerebral or intracranial hemorrhage or calvarial fracture. Chronic pansinusitis. Polypoid filling defects of the inferior maxillary sinuses consistent with mucoid retention cysts. Electronically Signed: Johnie Gilman MD at 15:37 EST , Service support [phone], Abdomen/Pelvis CT 02/11/16 12:51 IMPRESSION: 1. Bilateral nonobstructing renal calculi. 2. Calcified plaques of the abdominal aorta. 3. Prostatic calcifications are present. 4. Status post left inguinal hernia repair changes. 5. Fat-containing right inguinal hernia. 6. Diffuse degenerative changes of the thoracolumbar spine. 7. There is no evidence of hepatic, splenic, or renal laceration or hematoma. No abnormal free or loculated intra-abdominal or intrapelvic fluid, free air, or inflammatory process is seen. Electronically Signed: Johnie Gilman MD at 15:59 EST , Service support [phone], Cervical Spine CT 02/11/16 12:51 IMPRESSION: Technically limited study. Cervical spinal straightening and degenerative changes of C5-C7 as described above. Mild narrowing of the C6-7 disc space. There is no evidence of cervical fracture or subluxation. Electronically Signed: Johnie Gilman MD at 15:44 EST , Service support [phone], Chest CT 02/11/16 12:51 IMPRESSION: 1. Coronary arterial calcifications are present. There is mild mediastinal lipomatosis. 2. There are calcified plaques of the thoracic aorta. 3. The pulmonary parenchyma is clear. There is no evidence of hemo or pneumothorax or pulmonary contusion. 4. No rib fracture was identified. There are diffuse degenerative changes of the thoracolumbar spine. Electronically Signed: Johnie Gilman MD at 15:53 EST , Service support [phone], Chest X-Ray 02/11/16 17:40 IMPRESSION: Normal x-ray examination of the chest. Electronically Signed: Dain Ortega MD, FACR at 19:08 EST , Service support [phone], [employer] Operations: None Procedures: None Summary of Care Provided: 55-year-old male no known cardiac disease, history of hypertension, hyperlipidemia,obesity, hx of depression suicidal ideation admitted with acute onset of progressive shortness of breath(02/11/2016). 1. Acute hypoxic respiratory failure secondary to likely new onset CHF versus COPD exacerbation. Managed in ICU overnight on BiPAP, Off BiPAP( 02/11/15) and saturating at 94% on 4 L of oxygen 2D echo is pending, repeat ABG (02/11/15) shows pH 7.47, PCO2 of 28, PO2 105 Patient insist on being transferred to [place] Plan: Transfer to [place] when bed is available 2. Tachycardia, slight hypertension, likely related to benzo withdrawal, versus beta-blockade withdrawal (carvedilol was put on hold last night as patient was on BiPAP), versus mild dehydration vs albuterol due to tachycardia versus anxiety Plan: Gentle IV fluids, DC albuterol, continue on ipratropium breathing treatment, IV benzodiazepine as needed, monitor vitals closely. 3. Severe sepsis(tachycardia, leukocytosis, temperature more than 101, lactic acid 2.5), unclear etiology for now. Previous chest x-ray was negative. Plan: Repeat chest x-ray, urine culture 4. Substance abuse disorder, benzodiazepines, marijuana, suspect also opioids but no showing on current tox screen Plan: On benzo withdrawal protocol 5. CAD, aspirin, statin 6. COPD, on budesonide and formoterol 7 Hyperlipidemia, statin 8. Depressive disorder with previous suicidal ideation, Latuda, Remeron. Records from [address] [place] [address] shows that patient was admitted recently on 01/30/2016 with worsening depression, suicidal attempt with overdose. 9. BPH, history of kidney stones ,on Flomax and finasteride Discharge Diet: Low fat/ Low Cholesterol, 2000 mg Sodium Diet Discharge Activity: - - Transfer to acute care hospital Home Medications: Medications to take at Discharge Acetaminophen [Tylenol] 650 mg PO Q4H PRN 08/21/15 Aspirin [Aspirin, Baby] 81 mg PO DAILY@0800 08/21/15 Budesonide/Formoterol 160/4.5 [Symbicort 160/4.5 Mcg Inhaler (SP)] 2 puff INHALATION BID 08/21/15 Finasteride [Proscar] 5 mg PO DAILY 08/21/15 Pantoprazole Sodium [Protonix] 40 mg PO BID 08/21/15 Pravastatin [Pravachol] 20 mg PO QHS 08/21/15 Tamsulosin HCl [Flomax] 0.4 mg PO BID 08/21/15 ProMETHAzine [Phenergan] 25 mg PO Q6H PRN PRN #10 tablet 01/01/16 ProMETHAzine [Phenergan] 25 mg RECTAL Q4H PRN PRN #10 suppos. 01/12/16 Sucralfate [Carafate] 1 gm PO 4X/DAY #30 tab 01/20/16 Carvedilol [Coreg] 6.25 mg PO BID 02/11/16 Cyclobenzaprine [Flexeril] 10 mg PO TID PRN PRN 02/11/16 Docusate Sodium [Colace] 100 mg PO DAILY 02/11/16 Doxepin HCl 50 - 100 mg PO QHS PRN 02/11/16 Gabapentin [Neurontin] 300 mg PO 0 02/11/16 Gabapentin [Neurontin] 300 mg PO DAILY 02/11/16 Gabapentin [Neurontin] 600 mg PO QHS 02/11/16 Lurasidone HCl [Latuda] 60 mg PO 1700 02/11/16 Mirtazapine [Remeron] 30 mg PO QHS 02/11/16 Multivitamin with Iron [Tab-A-Radha with Iron] 1 each PO DAILY 02/11/16 Primary Care Physician: Job Stanton,Out of [Primary Care Provider] - Please follow up with your Primary Care Physician in: 1-2 weeks after discharge from acute care hospital Disposition: Acute care Hospital Minutes spent on discharge:: 40 Patient Condition:: Stable Meaningful Use Info Meaningful Use Diagnoses (Choose all that apply): None applicable
[2016-02-12] MEDS: 0.9% Normal Saline 1,000 ML 75 ML IV (09:41)
--- NOTE | 2016-02-12 09:41 | DS.PCM_ITS ---
Discharge Date and Diagnosis - Problem List Patient Problems: Active and Suspected Problems Acute and chronic respiratory failure with hypoxia (Acute) Acute respiratory failure with hypoxia (Acute) Date of Admission: 02/11/16 Date of Discharge: 02/12/16 - Primary Discharge Diagnosis Active and Suspected Problems Acute and chronic respiratory failure with hypoxia (Acute) Acute respiratory failure with hypoxia (Acute) Severe sepsis - Secondary Discharge Diagnosis Chronic Problems Chronic back pain (Chronic) Polysubstance dependence including opioid drug with daily use (Chronic) Hospital Course and Treatment Imaging Results: 02/12/16 08:34 Chest 1 View (Portable) [RAD] Urgent Clinical Impression(s) from Imaging Studies Brain CT 02/11/16 12:49 IMPRESSION: [place] matter atrophy involving the frontal lobes. There is no evidence of intracerebral or intracranial hemorrhage or calvarial fracture. Chronic pansinusitis. Polypoid filling defects of the inferior maxillary sinuses consistent with mucoid retention cysts. Electronically Signed: Johnie Gilman MD at 15:37 EST , Service support [phone], Abdomen/Pelvis CT 02/11/16 12:51 IMPRESSION: 1. Bilateral nonobstructing renal calculi. 2. Calcified plaques of the abdominal aorta. 3. Prostatic calcifications are present. 4. Status post left inguinal hernia repair changes. 5. Fat-containing right inguinal hernia. 6. Diffuse degenerative changes of the thoracolumbar spine. 7. There is no evidence of hepatic, splenic, or renal laceration or hematoma. No abnormal free or loculated intra-abdominal or intrapelvic fluid, free air, or inflammatory process is seen. Electronically Signed: Johnie Gilman MD at 15:59 EST , Service support [phone], Cervical Spine CT 02/11/16 12:51 IMPRESSION: Technically limited study. Cervical spinal straightening and degenerative changes of C5-C7 as described above. Mild narrowing of the C6-7 disc space. There is no evidence of cervical fracture or subluxation. Electronically Signed: Johnie Gilman MD at 15:44 EST , Service support [phone], Chest CT 02/11/16 12:51 IMPRESSION: 1. Coronary arterial calcifications are present. There is mild mediastinal lipomatosis. 2. There are calcified plaques of the thoracic aorta. 3. The pulmonary parenchyma is clear. There is no evidence of hemo or pneumothorax or pulmonary contusion. 4. No rib fracture was identified. There are diffuse degenerative changes of the thoracolumbar spine. Electronically Signed: Johnie Gilman MD at 15:53 EST , Service support [phone], Chest X-Ray 02/11/16 17:40 IMPRESSION: Normal x-ray examination of the chest. Electronically Signed: Dain Ortega MD, FACR at 19:08 EST , Service support [phone], [employer] Operations: None Procedures: None Summary of Care Provided: 55-year-old male no known cardiac disease, history of hypertension, hyperlipidemia,obesity, hx of depression suicidal ideation admitted with acute onset of progressive shortness of breath(02/11/2016). 1. Acute hypoxic respiratory failure secondary to likely new onset CHF versus COPD exacerbation. Managed in ICU overnight on BiPAP, Off BiPAP( 02/11/15) and saturating at 94% on 4 L of oxygen 2D echo is pending, repeat ABG (02/11/15) shows pH 7.47, PCO2 of 28, PO2 105 Patient insist on being transferred to [place] Plan: Transfer to [place] when bed is available 2. Tachycardia, slight hypertension, likely related to benzo withdrawal, versus beta-blockade withdrawal (carvedilol was put on hold last night as patient was on BiPAP), versus mild dehydration vs albuterol due to tachycardia versus anxiety Plan: Gentle IV fluids, DC albuterol, continue on ipratropium breathing treatment, IV benzodiazepine as needed, monitor vitals closely. 3. Severe sepsis(tachycardia, leukocytosis, temperature more than 101, lactic acid 2.5), unclear etiology for now. Previous chest x-ray was negative. Plan: Repeat chest x-ray, urine culture 4. Substance abuse disorder, benzodiazepines, marijuana, suspect also opioids but no showing on current tox screen Plan: On benzo withdrawal protocol 5. CAD, aspirin, statin 6. COPD, on budesonide and formoterol 7 Hyperlipidemia, statin 8. Depressive disorder with previous suicidal ideation, Latuda, Remeron. Records from [address] [place] [address] shows that patient was admitted recently on 2015 with worsening depression, suicidal attempt with overdose. 9. BPH, history of kidney stones ,on Flomax and finasteride Discharge Diet: Low fat/ Low Cholesterol, 2000 mg Sodium Diet Discharge Activity: - - Transfer to acute care hospital Home Medications: Medications to take at Discharge Acetaminophen [Tylenol] 650 mg PO Q4H PRN 08/21/15 Aspirin [Aspirin, Baby] 81 mg PO DAILY@0800 08/21/15 Budesonide/Formoterol 160/4.5 [Symbicort 160/4.5 Mcg Inhaler (SP)] 2 puff INHALATION BID 08/21/15 Finasteride [Proscar] 5 mg PO DAILY 08/21/15 Pantoprazole Sodium [Protonix] 40 mg PO BID 08/21/15 Pravastatin [Pravachol] 20 mg PO QHS 08/21/15 Tamsulosin HCl [Flomax] 0.4 mg PO BID 08/21/15 ProMETHAzine [Phenergan] 25 mg PO Q6H PRN PRN #10 tablet 01/01/16 ProMETHAzine [Phenergan] 25 mg RECTAL Q4H PRN PRN #10 suppos. 01/12/16 Sucralfate [Carafate] 1 gm PO 4X/DAY #30 tab 01/20/16 Carvedilol [Coreg] 6.25 mg PO BID 02/11/16 Cyclobenzaprine [Flexeril] 10 mg PO TID PRN PRN 02/11/16 Docusate Sodium [Colace] 100 mg PO DAILY 02/11/16 Doxepin HCl 50 - 100 mg PO QHS PRN 02/11/16 Gabapentin [Neurontin] 300 mg PO 0 02/11/16 Gabapentin [Neurontin] 300 mg PO DAILY 02/11/16 Gabapentin [Neurontin] 600 mg PO QHS 02/11/16 Lurasidone HCl [Latuda] 60 mg PO 1700 02/11/16 Mirtazapine [Remeron] 30 mg PO QHS 02/11/16 Multivitamin with Iron [Tab-A-Radha with Iron] 1 each PO DAILY 02/11/16 Primary Care Physician: Job Stanton,Out of [Primary Care Provider] - Please follow up with your Primary Care Physician in: 1-2 weeks after discharge from acute care hospital Disposition: Acute care Hospital Minutes spent on discharge:: 40 Patient Condition:: Stable Meaningful Use Info Meaningful Use Diagnoses (Choose all that apply): None applicable
[2016-02-12] MEDS: Carvedilol 6.25 MG Tablet PO (09:55)
[2016-02-12] MEDS: Pantoprazole Sodium 40 MG Tablet PO (09:55)
[2016-02-12] MEDS: Gabapentin 300 MG Capsule PO (09:55)
--- NOTE | 2016-02-12 10:19 | NURSING ---
called report to asha HARMON at [facility]
== END 2016-02-12 10:10 | disposition short-term general hospital (02) | DRG 133 ==
LOC: ED 11-02 13:41 → ICU 11-02 13:41
PROVIDERS: Family Medicine; Admitting Provider Internal Medicine; Emergency Provider Emergency Medicine; Visit Provider Internal Medicine
DX: J96.21 Acute and chronic respiratory failure with hypoxia (principal); N17.9 Acute kidney failure, unspecified; G93.40 Encephalopathy, unspecified; A41.9 Sepsis, unspecified organism; R65.20 Severe sepsis without septic shock; J44.1 Chronic obstructive pulmonary disease with (acute) exacerbation; I50.9 Heart failure, unspecified; I25.10 Atherosclerotic heart disease of native coronary artery without angina pectoris; I10 Essential (primary) hypertension; E78.5 Hyperlipidemia, unspecified; F19.20 Other psychoactive substance dependence, uncomplicated; F11.20 Opioid dependence, uncomplicated; F13.239 Sedative, hypnotic or anxiolytic dependence with withdrawal, unspecified; N40.0 Benign prostatic hyperplasia without lower urinary tract symptoms; S00.01XA Abrasion of scalp, initial encounter; W10.9XXA Fall (on) (from) unspecified stairs and steps, initial encounter; Y93.9 Activity, unspecified; Y92.9 Unspecified place or not applicable; Y99.9 Unspecified external cause status; M54.9 Dorsalgia, unspecified; G89.29 Other chronic pain; F32.9 Major depressive disorder, single episode, unspecified; F17.210 Nicotine dependence, cigarettes, uncomplicated; E66.9 Obesity, unspecified; Z68.32 Body mass index [BMI] 32.0-32.9, adult; Z87.11 Personal history of peptic ulcer disease; Z87.442 Personal history of urinary calculi; Z79.82 Long term (current) use of aspirin; Z79.899 Other long term (current) drug therapy
CPT/HCPCS: 36600; 51702; 70450; 71010; 71260; 72125; 74176; 80048; 80053; 80307; 80320; 80329; 81001; 82803; 83605; 83880; 84484; 85025; 85027; 87040; 87086; 87641; 87804; 93005; 93306; 94002; 94003; 94640; 94660; 99218; 99285; J7030; J7040; Q9967; G0378; G0480; J1940; J2405